=== PATIENT | male | born 1985 | race Caucasian/White ===

== ENCOUNTER 2017-09-25 02:21 | Emergency (ER) | payer OTHER ==
[2017-09-25] MEDS ORDERED: Ibuprofen TAB* 800 MG PO ONE (03:31)
[2017-09-25] MEDS ORDERED: Amoxicillin/Clavulanate TAB* 875 MG PO ONE (03:33)
[2017-09-25] MEDS ORDERED: oxyCODONE/Acetamin 5/325 MG* TAB PO ONE (03:33)
[2017-09-25 03:59] VITALS: BP 145/75
--- NOTE | 2017-09-26 02:47 | ED ---
Mansoor Marina Rebecca, scribed for Sandra Canela MD on 09/25/17 at 0311 . Complex/Multi-Sys Presentation - HPI Summary HPI Summary: Pt is a 32 y/o M who presents to ED c/o L ear pain. Sx began yesterday (Monday) morning. On triage, pain is severe, ranked 10/10. 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 Denies fever. Has not been swimming. - History Of Current Complaint Chief Complaint: EDEarPain Time Seen by Provider: 09/25/17 03:07 Hx Obtained From: Patient Onset/Duration: Lasting Days - 1 day, Still Present Severity Currently: Severe - 10/10 Location: Pain At: - Left ear Aggravating Factor(s): Nothing Associated Signs And Symptoms: Negative: Fever - Allergies/Home Medications Allergies/Adverse Reactions: Allergies Allergy/AdvReac Type Severity Reaction Status Date / Time No Known Allergies Allergy Verified 09/25/17 02:26 PMH/Surg Hx/FS Hx/Imm Hx Previously Healthy: Yes Sensory History: Denies: Hx Legally Blind EENT History: Denies: Hx Deafness Infectious Disease History: No Infectious Disease History: Denies: Traveled Outside the [place] in Last 30 Days - Family History Known Family History: Positive: Hypertension - Social History Occupation: Student Substance Use Type: Reports: None Review of Systems Negative: Fever Positive: Ear Ache - Left All Other Systems Reviewed And Are Negative: Yes Physical Exam - Summary Physical Exam Summary: VITAL SIGNS: Reviewed. GENERAL: ~Patient is a well-developed and nourished male who is lying comfortable in the stretcher. Patient is not in any acute respiratory distress. HEAD AND FACE: No signs of trauma. No ecchymosis, hematomas or skull depressions. No sinus tenderness. EYES: PERRLA, EOMI x 2, No injected conjunctiva, no nystagmus. EARS: Hearing grossly intact. Ear canals within normal limits. Left TM is hyperemic. MOUTH: Oropharynx within normal limits. NECK: Supple, trachea is midline, no adenopathy, no JVD, no carotid bruit, no c- spine tenderness, neck with full ROM. CHEST: Symmetric, no tenderness at palpation LUNGS: Clear to auscultation bilaterally. No wheezing or crackles. CVS: Regular rate and rhythm, S1 and S2 present, no murmurs or gallops appreciated. ABDOMEN: Soft, non-tender. No signs of distention. No rebound no guarding, and no masses palpated. Bowel sounds are normal. EXTREMITIES: FROM in all major joints, no edema, no cyanosis or clubbing. NEURO: Alert and oriented x 3. No acute neurological deficits. Speech is normal and follows commands. SKIN: Dry and warm Triage Information Reviewed: Yes Vital Signs On Initial Exam: Initial Vitals Temp Pulse Resp BP Pulse Ox 97.6 F 80 20 202/87 99 09/25/17 02:23 09/25/17 02:23 09/25/17 02:23 09/25/17 02:23 09/25/17 02:23 Vital Signs Reviewed: Yes Diagnostics - Vital Signs Vital Signs Temp Pulse Resp BP Pulse Ox 09/25/17 02:26 158/46 09/25/17 02:23 97.6 F 80 20 202 99 - Laboratory Lab Statement: Any lab studies that have been ordered have been reviewed, and results considered in the medical decision making process. Complex Multi-Symp Course/Dx Assessment/Plan: Pt is a 32 y/o M who presents to ED c/o L ear pain since yesterday morning. On triage, pain is severe, ranked 10/10. 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 Denies fever. Has not been swimming. Pt will be D/C to home with Dx of otitis media with Rx for Augmentin, Motrin, and Percocet with a follow up with his PCP. He understands and agrees. - Diagnoses Provider Diagnoses: Otitis media Discharge - Sign-Out/Discharge Documenting (check all that apply): Discharge/Admit/Transfer - Discharge - Discharge Plan Condition: Stable Disposition: HOME Prescriptions: Amoxicillin/Clavulanate TAB* [Augmentin TAB 875*] 875 mg PO BID #20 tab Ibuprofen TAB* [Motrin TAB* 800 MG] 800 mg PO Q6H PRN #30 tab PRN Reason: Pain oxyCODONE/Acetamin 5/325 MG* [Percocet 5/325 TAB*] 1 tab PO Q6H PRN #10 tab MDD 4 PRN Reason: Pain Patient Education Materials: Ear Infection (ED) Referrals: [facility] - MR,Brandon [Primary Care Provider] - 3 Days Additional Instructions: RETURN TO EMERGENCY DEPARTMENT FOR ANY RETURNING OR WORSENING SYMPTOMS. The documentation as recorded by the Mansoor thornton Rebecca accurately reflects the service I personally performed and the decisions made by Hilton barrera Abdul, MD.
== END 2017-09-25 04:05 | disposition home or self-care (01) ==
LOC: ED 02:21
DX: H66.92 Otitis media, unspecified, left ear (principal); H92.02 Otalgia, left ear
CPT/HCPCS: 99282; A9270-GY